=== PATIENT | male | born 1990 | race Caucasian/White ===

== ENCOUNTER 2024-11-23 13:20 | Emergency (ER) | payer OTHER, SELFPAY ==
--- NOTE | ~2024-11-23 | XR_ITS ---
XR hand RT min 3V 11/23/2024 14:14 INDICATION: Right hand pain PROCEDURE: 3 views right hand COMPARISON: No prior studies. FINDINGS: Fracture, dislocation or subluxation is not identified. Old healed fifth metacarpal fractur e. The soft tissues appear within normal limits. No foreign bodies are identified. IMPRESSION: 1: NO ACUTE BONE OR JOINT ABNORMALITY IDENTIFIED. Reviewed, dictated and finalized at location A.
[2024-11-23 13:26] VITALS: BP 111/72; PULSE 126; RESP 18; TEMP 36.9; O2SAT 100
--- NOTE | 2024-11-23 15:48 | ED_ITS ---
HPI - Animal Bite General Chief Complaint: Animal Bite Stated Complaint: dog bite to right hand Time Seen by Provider: 11/23/24 15:42 History of Present Illness HPI narrative: Patient is a 34-year-old male presents to the ER after sustaining a dog bite around 6:00 a.m. this morning. He reports the dog bit him on his right hand and held on for several seconds. Patient reports he did not know the dog nor the dog's chemistry quality control technician. He endorses significant pain in his right hand at the time of examination. Patient is unsure when he received his last tetanus shot. He denies any other medical history relevant to this ER visit. Patient denies decreased range of motion, purulent drainage from the site, or excessive redness/swelling. Related Data Allergies Allergy/AdvReac Type Severity Reaction Status Date / Time No Known Allergies Allergy Verified 11/23/24 13:30 Review of Systems Review of Systems: All systems reviewed & are unremarkable except as noted in HPI and below Exam Narrative: GENERAL: Well appearing, well-nourished, non-toxic, in no acute distress. HEAD: Normocephalic, atraumatic. NECK: Supple. No adenopathy, no masses. RESPIRATORY: Airway patent, respirations nonlabored. Clear to auscultation bilaterally, no rales, rhonchi, wheezing. CARDIOVASCULAR: Regular rate and rhythm without murmurs, rubs, or gallops. Peripheral pulses 2+ and equal bilaterally. ABDOMINAL: Soft, nontender, nondistended, no hepatosplenomegaly. Normoactive BS. MUSCULOSKELETAL: Moves all extremities. Strength/ROM intact without gross deformities. Full range of motion with all digits on right hand. SKIN: Warm, dry, normal color. No rashes. Puncture wound on right hand in snuffbox area, bleeding controlled. NEURO: A&O X3. Speech clear. Cranial nerves II-XII intact. No ataxic movements. PSYCHIATRIC: Appropriate mood and affect. Normal interaction. Course Vital Signs Vital signs: Vital Signs Temperature 36.9 C 11/23/24 13:26 Pulse Rate 126 H 11/23/24 13:26 Respiratory Rate 18 11/23/24 13:26 Blood Pressure 111/72 11/23/24 13:26 Pulse Oximetry 100 11/23/24 13:26 Oxygen Delivery Room Air 11/23/24 13:26 Temperature 36.9 C 11/23/24 13:26 Pulse Rate 126 H 11/23/24 13:26 Respiratory Rate 18 11/23/24 13:26 Blood Pressure 111/72 11/23/24 13:26 Pulse Oximetry 100 11/23/24 13:26 Oxygen Delivery Room Air 11/23/24 13:26 MDM - Animal Bite MDM Narrative Medical decision making narrative: Patient is a 34-year-old male presents to the ER after sustaining a dog bite around 6:00 a.m. this morning. He reports the dog bit him on his right hand and held on for several seconds. Patient reports he did not know the dog nor the dog's chemistry quality control technician. He endorses significant pain in his right hand at the time of examination. Patient is unsure when he received his last tetanus shot. He denies any other medical history relevant to this ER visit. Patient denies decreased range of motion, purulent drainage from the site, or excessive rednes s/swelling. Labs Ordered: None necessary Imaging Ordered: Right hand x-ray Medications Ordered: Tdap IM, Augmentin p.o., Quentin p.o. Results: Pt's R hand x-ray indicates Fracture, dislocation or subluxation is not identified. Old healed fifth metacarpal fracture. The soft tissues appear within normal limits. No foreign bodies are identified. Diagnosis: Dog bite Consults: 1620- Spoke with infectious diseaseMadelaine RN, who advised pt receive rabies vaccination. Patient Education/Shared MDM: Discussion with Infectious Disease shared with patient. Results of x-ray also shared with patient and his significant other. He continues to endorses full range of motion and his right hand DIP and PIP joints. Pt endorses improvement of symptoms following pain medication ad ministration. Rabies IVIG infiltrated around pt's R hand wound by TUBE DISPATCHER. Pt tolerated procedure fairly well. Patient strongly advised to follow-up with infectious disease here @ [facility] and his PCP as soon as possible. He will be discharged home with a prescription for Augmentin and rabies prophylaxis. He should plan on returning on Days 3, 7, and 14 for further rabies treatment. Strict return precautions provided. Patient verbalized understanding and is in agreement with plan. Vital signs stable at time of discharge. All questions answered. Differential Diagnosis Differential diagnosis: Likely bite by animal, dog bite and rabies contact Imaging Data Attestation: I personally reviewed and interpreted this imaging study as follows: Radiologist's impression: Impressions Hand X-Ray 11/23/24 14:21 IMPRESSION: 1: NO ACUTE BONE OR JOINT ABNORMALITY IDENTIFIED. Discharge Plan Discharge Clinical Impression: Dog bite, Puncture wound of right hand, Rabies vaccine administered Patient Disposition: Home Condition: Stable Instructions: Antibiotic Form, Animal Bite (ED) Additional Instructions: Please return to the ER with any worsening symptoms. Follow-up with Infectious Disease at [facility] and primary care provider as soon as possible. Take all medications as prescribed. Complete your full dose of antibiotics. You should plan to return to [facility] on Days 3, 7, and 14, for completion of your rabies treatment. Patient Language: Faroese Prescriptions: New amoxicillin-pot clavulanate 875-125 mg tablet 1 tablet PO Q12H Qty: 20 0RF Follow-up/Referrals: PHYSICIAN,AIRCRAFT RIVETER [Primary Care Provider] - Mikey Bradley MD [Physician] - (primary care provider) Time of Disposition: 17:04
[2024-11-23] MEDS: HYDROcodone/acetaminophen (*CRX) 5-325 MG TABLET 1 TAB PO (15:51)
--- OUTSIDE RECORDS SUMMARY | 2024-11-23 16:06 | XMS_ITS | Clinical Summary ---
Author Organization [facility] Address [address] [place] [address] Care Team Providers Care Commercial Energy Auditor Name Role Phone Lorrie Jernigan MD Primary Care Provider [phone] Allergies No known active allergies Medications sertraline (ZOLOFT) 25 mg tablet Take 25 mg by mouth daily. Active benzonatate (TESSALON PERLES) 100 mg capsule Take 1 capsule (100 mg total) by mouth 3 (three) times a day as needed for cough 20 capsule 9 Active Additional Information Patient not taking.Reported on 06/20/2019 HYDROcodone-radha taminophen (NORCO) 5-325 mg per tablet Take 1 tablet by mouth every 6 (six) hours as needed for moderate pain 7 tablet 0 Active Additional Information Patient not taking.Reported on 06/20/2019 Active Problems No known active problems Social History Tobacco Use Types Packs/Day Years Used Date Smoking Tobacco: Every Day Cigarettes Smokeless Tobacco: Never Alcohol Use Standard Drinks/Week Comments No 0 (1 standard drink = 0.6 oz pur e alcohol) Sex and Gender Information Value Date Recorded Sex Assigned at Not on file Legal Sex Male 9:03 PM CDT Gender Identity Not on file Sexual Orientation Not on file Last Filed Vital Signs Vital Sign Reading Time Taken Comments Blood Pressure 132/80 06/20/2019 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 MACHINE OPERATOR Pulse 88 06/20/2019 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 MACHINE OPERATOR Temperature 37 C (98.6 F) 06/20/2019 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 MACHINE OPERATOR Respiratory Rate 16 06/20/2019 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 MACHINE OPERATOR Oxygen Saturation 96% 06/20/2019 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 MACHINE OPERATOR Inhaled Oxygen Concentration - - Weight 68 kg (150 lb) 06/20/2019 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 MACHINE OPERATOR Height 188 cm (6' 2) 06/20/2019 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 MACHINE OPERATOR Body Mass Index 19.26 06/20/2019 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 MACHINE OPERATOR Plan of Treatment Health Maintenance Due Date Last Done Comments MMR Vaccines (1 of 1 - Stand desi series) 1993 Depression Screening 2004 Varicella Vaccines (1 of 2 - 13+ 2-dose series) 2005 AMB Pneumococcal 0-49 yrs (1 of 2 - PCV) 2011 Hepatitis B Vaccines (1 of 3 - 19+ 3-dose series) 2011 HPV Vaccines (1 - 3-dose SCD M series) 2019 COVID-19 Vaccine ( - 2023-2 5 season) 2023 Influenza Vaccine (#1) 2024 DTaP,Tdap,and Td Vaccines (2 - Td or Tdap) 11/28/2027 11/27/2017 RSV Vaccines and 60 Years or Older (1 - 1-dose 75+ series) 2067 HIB Vaccines Aged Out No longer eligi ble based on patient's age to complete this topic Hepatitis A Vaccines Aged Out No long er eligible based on patient's age to complete this topic IPV Vaccines Aged Out No longer eligi ble based on patient's age to complete this topic Meningococcal ACWY Vaccine Aged Out N o longer eligible based on patient's age to complete this topic Meningococcal B Vaccine Aged Out No l onger eligible based on patient's age to complete this topic RSV Vaccines <20 Months Aged Out No l onger eligible based on patient's age to complete this topic Insurance ([facility] [place] [employer] Care Teams Commercial Energy Auditor Relationship Specialty Start Date End Date Lorrie Jernigan MD [address] [place], [place] [id number] PCP - General Family Medicine 01/30/18
[2024-11-23] MEDS: TETANUS,DIPHTHERIA,AC PERTUSSIS ADULT (0.5 ML) BOOSTRIX IM (16:27)
[2024-11-23] MEDS: WATER FOR IRRIGATION, STERILE 500 ML BOTTLE (16:28)
[2024-11-23] MEDS: RABIES VACCINE (RABAVERT) 2.5 UNITS VIAL IM (16:49)
[2024-11-23] MEDS: RABIES IMMUNE GLOBULIN/PF 1,500 UNITS/5 ML VIAL 78 UNITS IM (17:00)
[2024-11-23 17:24] VITALS: BP 122/86; PULSE 74; RESP 16; O2SAT 97
== END 2024-11-23 17:25 | disposition home or self-care (01) ==
PROVIDERS: Emergency Provider Registered Nurse
DX: S61.451A Open bite of right hand, initial encounter (principal); Z23 Encounter for immunization; Z29.14 Encounter for prophylactic rabies immune globulin; W54.0XXA Bitten by dog, initial encounter
CPT/HCPCS: 73130; 90375; 90471; 90472; 90675; 90715; 96372; 99283; A9270